=== PATIENT | male | born 1995 | race Caucasian/White ===

== ENCOUNTER 2020-11-30 18:20 | Emergency (ER) | payer BC ==
[2020-11-30 18:29] VITALS: BP 109/69; PULSE 79; TEMP 99.7; BMI 42.9
[2020-11-30] MEDS ORDERED: LIDOCAINE 5% TOPICAL PATCH TP ONE (18:34)
[2020-11-30] MEDS ORDERED: KETOROLAC TROMETHAMINE 30 MG/1 ML VIAL IM ONE (18:34)
[2020-11-30] MEDS ORDERED: KETOROLAC TROMETHAMINE 30 MG/1 ML VIAL ONE (18:39)
[2020-11-30] MEDS ORDERED: CYCLOBENZAPRINE HCL 10 MG TABLET (FP) ONE (18:40)
[2020-11-30] MEDS ORDERED: LIDOCAINE 5% TOPICAL PATCH ONE (18:40)
[2020-11-30] MEDS ORDERED: CYCLOBENZAPRINE HCL 10 MG TABLET (FP) PO ONE (18:56)
[2020-11-30] MEDS ORDERED: predniSONE 20 MG TABLET (UD) ONE (20:08)
[2020-11-30] MEDS ORDERED: predniSONE 5 MG/5 ML ORAL SOLN- UNIT-DOSE CUP PO ONE (20:09)
[2020-11-30] MEDS ORDERED: LIDOCAINE PATCH REMOVAL MC SCH (22:00)
[2020-12-01] MEDS ORDERED: CYCLOBENZAPRINE HCL 5 MG TABLET PO ONE (18:46)
== END 2020-11-30 20:54 | disposition home or self-care (01) ==
LOC: FER 18:20
PROC: 3E0233Z Introduction of Anti-inflammatory into Muscle, Percutaneous Approach (ICD-10-PCS; principal; 2020-11-30)
DX: M54.5 Low back pain (principal)
CPT/HCPCS: 99284-25